=== PATIENT | female | born 1985 | race Caucasian/White ===

== ENCOUNTER 2021-01-26 09:38 | Emergency (ER) | payer BC ==
[~2021-01-26] VITALS: Ht 167.6 cm; Wt 84.4 kg
[2021-01-26] MEDS ORDERED: SOTROVIMAB 500 MG in SODIUM CHLORIDE 0.9% 100 ML IV ONE (12:00)
== END 2021-01-26 12:50 | disposition home or self-care (01) ==
LOC: ER 10:00
DX: U07.1 COVID-19 (principal); R05.9 Cough, unspecified; R51.9 Headache, unspecified
CPT/HCPCS: 99283; J7050